=== PATIENT | male | born 1985 | race African-American/Black ===

== ENCOUNTER 2019-05-08 11:59 | Emergency (ER) | payer SELFPAY ==
--- NOTE | 2019-05-08 12:41 | ED Physician Documentation ---
PD HPI URI - Stated complaint Stated Complaint: CHEST PX,BARDALES,COUGH - Chief complaint Chief Complaint: Resp - History obtained from History obtained from: Patient - History of Present Illness Timing - onset: How many weeks ago (3-4) Timing duration: Weeks (3-4) Timing details: Gradual onset, Still present Associated symptoms: Nasal congestion, Productive cough, Dyspnea. No: Fever, Swollen nodes, Hemoptysis, NVD Contributing factors: No: Sick contact, Immunocompromised, COPD / asthma Similar symptoms before: Has not had sx before Recently seen: Not recently seen Review of Systems Constitutional: reports: Myalgias. denies: Fever, Chills Nose: denies: Rhinorrhea / runny nose, Congestion Throat: denies: Sore throat Cardiac: reports: Chest pain / pressure. denies: Palpitations, Pedal edema, Calf pain Respiratory: reports: Dyspnea, Cough, Wheezing GI: denies: Nausea, Vomiting, Diarrhea Skin: denies: Rash PD PAST MEDICAL HISTORY - Past Medical History Past Medical History: No Respiratory: None Neuro: None Endocrine/Autoimmune: None - Past Surgical History Past Surgical History: No - Present Medications Home Medications: Ambulatory Orders Medication Instructions Recorded Confirmed Albuterol Sulfate [Albuterol 2 puffs IH QID #1 hfa.aer.ad 05/08/19 Sulfate Hfa] Benzonatate [Tessalon Perle] 100 - 200 mg PO TID PRN #30 capsule 05/08/19 Doxycycline Monohydrate 100 mg PO BID #14 tablet 05/08/19 Hydrocodone/Acetaminophen 1 each PO Q6H PRN #14 tablet 05/08/19 [Hydrocodon-Acetaminophen 5-325] dexAMETHasone [Decadron] 4 mg PO DAILY #7 tablet 05/08/19 - Allergies Allergies/Adverse Reactions: Allergies Allergy/AdvReac Type Severity Reaction Status Date / Time Penicillins Allergy Unknown Verified 05/08/19 12:07 - Social History Does the pt smoke?: No Smoking Status: Never smoker Does the pt drink ETOH?: No Does the pt have substance abuse?: No - Immunizations Immunizations are current?: Yes - POLST Patient has POLST: No PD ED PE NORMAL - Vitals Vital signs reviewed: Yes - General General: Alert and oriented X 3, No acute distress, Well developed/nourished - HEENT HEENT: Pharynx benign - Neck Neck: Supple, no meningeal sign, No adenopathy - Cardiac Cardiac: RRR, No murmur - Respiratory Respiratory: No: Clear bilaterally (wheezing on expiration left side, and some bilateral perihilar. No coarse sounds. ) - Abdomen Abdomen: Soft, Non tender - Derm Derm: Normal color, Warm and dry - Neuro Neuro: Alert and oriented X 3, No motor deficit, Normal speech Results - Vitals Vitals: Vital Signs - 24 hr 05/08/19 05/08/19 05/08/19 12:04 13:20 13:40 Temperature 37.4 C 37.2 C Heart Rate 98 98 96 Respiratory 18 16 18 Rate Blood Pressure 145/95 H 157/99 H O2 Saturation 99 96 Oxygen O2 Source Room air PD MEDICAL DECISION MAKING - ED course Complexity details: considered differential (has some wheezing sounds, mostly left lung. Consider bronchitis, but would also cover for mild pneumonia. ), d/w patient Departure - Departure Disposition: 01 Home, Self Care Clinical Impression: Wheezing on left side of chest on exhalation Acute bronchitis Qualifiers: Bronchitis organism: unspecified organism Qualified Code(s): J20.9 - Acute bronchitis, unspecified Condition: Stable Record reviewed to determine appropriate education?: Yes Instructions: ED Pneumonia Adult Prescriptions: Albuterol Sulfate [Albuterol Sulfate Hfa] 2 puffs IH QID #1 hfa.aer.ad Benzonatate [Tessalon Perle] 100 - 200 mg PO TID PRN #30 capsule PRN Reason: Cough dexAMETHasone [Decadron] 4 mg PO DAILY #7 tablet Doxycycline Monohydrate 100 mg PO BID #14 tablet Hydrocodone/Acetaminophen [Hydrocodon-Acetaminophen 5-325] 1 each PO Q6H PRN #14 tablet PRN Reason: pain Comments: Stay well-hydrated. Use the albuterol inhaler 2 puffs 4 times a day for the next week and then as needed for wheezing and cough. Decadron steroid daily for a week. Doxycycline antibiotic twice daily for a week. Benzonatate as needed for cough suppression. You can still use Mucinex or such or cough medicine. Add hydrocodone if needed for pain or cough, particularly at night. Recheck if not improved well over the next several days to a week. Off work for couple of days as needed. Forms: Activity restrictions Discharge Date/Time: 05/08/19 13:42
[2019-05-08] MEDS ORDERED: DEXAMETHASONE 10 MG/ML VIAL PO STA (12:56)
[2019-05-08] MEDS ORDERED: BENZONATATE 100 MG CAPSULE PO STA (12:56)
[2019-05-08] MEDS ORDERED: ALBUTEROL NEB 2.5 MG/3 ML INH STA (12:56)
[2019-05-08] MEDS ORDERED: CHERRY SYRUP 10 ML UDC PO ONE (12:56)
[2019-05-08] MEDS ORDERED: DOXYCYCLINE 100 MG TABLET PO STA (12:57)
[2019-05-08 13:41] VITALS: BP 157/99
== END 2019-05-08 13:42 | disposition home or self-care (01) ==
LOC: ED 11:59
DX: J20.9 Acute bronchitis, unspecified (principal); R06.2 Wheezing
CPT/HCPCS: 94640; 99284; A9270